=== PATIENT | female | born 1995 | race Caucasian/White ===

== ENCOUNTER 2021-08-31 07:15 | Emergency (ER) | payer OTHER ==
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
== END 2021-08-31 07:42 | disposition home or self-care (01) ==
LOC: DL.ED 07:15
DX: R07.81 Pleurodynia (principal)
CPT/HCPCS: 99283